=== PATIENT | female | born 1960 | race Caucasian/White ===

== ENCOUNTER 2016-12-27 14:53 | Emergency (ER) | payer OTHER ==
--- NOTE | 2016-12-27 15:21 | EDPHY ---
HPI/HX/ROS/PE/MDM Narrative: CHIEF COMPLAINT: Swelling and ecchymosis post surgery HISTORY OF PRESENT ILLNESS: This patient is a 56 year old female arriving with her daughter complaining of swelling, bruising, and tenderness to the left side of her ribcage following breast implant removal last week. She has a history of breast cancer, for which she underwent double mastectomy and subsequent 325cc bilateral implants. The patient states the implants began leaking, causing toxicity, so she had them removed by her plastic surgeon in [place], [place], 12/20/16, one week ago. She returned to [place] Friday, 12/23 and states the surgery went well, and that she is unaware of any complications. 12/25/16, she reports she had her sutures and drains removed in [place], and that she seemed to be healing well. Since then, she states she has noted swelling and bruising to her left side below the surgical site. She endorses feeling chilled and lightheaded occasionally, but states she expects these as side effects from her detox treatment. No fever, chest pain, shortness of breath, palpitations, vomiting, diarrhea, urinary complaints, headache. REVIEW OF SYSTEMS: Aside from elements discussed in the HPI, a comprehensive 10-point review of systems was reviewed and is negative. PAST MEDICAL HISTORY: Breast cancer, osteoporosis, autoimmune disorder SOCIAL HISTORY: Daughter at bedside. Lives in [place]. 1. See 2. Feel 3. Motion 4. Neurovascular Physical: bruising, asymmetrical tender to left Ecchymosis both anterior chest hui. Well-healed surgical incisions. Left side asymmetry of rib cage with left more prominent. No hematoma palpable. No LUQ tenderness. VITAL SIGNS: Hypotensive on arrival. Reviewed by me GENERAL: Well-developed, well-nourished, resting comfortably in no respiratory distress. HEENT: Benign. LUNGS: Clear to auscultation bilaterally, no wheezes, rhonchi or rales. CHEST: Ecchymosis is present on the lower anterior chest wall below the level of the surgical incisions. Incisions are well healing. There is a asymmetry of the chest wall. Mild swelling is present inferior to the surgical site on the left. No signs of erythema on the suture lines. Drainage sites are well healing. CARDIAC: Regular rate and rhythm, no rubs, murmurs or gallops. ABDOMEN: Soft, nontender, nondistended, bowel sounds normal. No upper abdominal discomfort. No left upper quadrant discomfort. BACK: No CVA tenderness. EXTREMITIES: No trauma. No edema. Range of motion is normal throughout. NEURO: Alert and oriented, grossly nonfocal. SKIN: Warm and dry, no rash. PSYCHIATRIC: Normal mentation, no agitation. Portions of this note were transcribed by a medical instrument cable fabricator. I personally performed a history, physical exam, medical decision making, and confirmed accuracy of information the transcribed note. ED Course: This patient is a 56 year old female presenting with ecchymosis and ribcage asymmetry following explantation surgery last 12/20/16. Plan for chest x-ray and ultrasound to evaluate for hematoma or other acute processes. Chest x-ray shows no identifiable source for chest pain, no evidence for metastatic breast cancer. Ultrasound shows findings consistent with a small incision site hematoma. Plan to discharge home in good condition with instructions to follow up as planned with her surgical team next Friday. MDM: Differential diagnoses for the patient's symptom complex was considered including but not limited to incisional hematoma, venous bleeding, arterial bleeding, chest wall asymmetry, pleural effusion, infected seroma, infected hematoma. - Data Points Imaging Results: Impression: Findings consistent with a small incision site hematoma. Dictated By: Joaquin Sheffield MD Imaging: Discussed imaging studies w/ gypsum roofer Radiologist Laboratory Results: Laboratory Results 12/27/16 15:43 General Time Seen by Provider: 12/27/16 15:07 Initial Vital Signs: Initial Vital Signs Temperature (C) 37 C 12/27/16 14:57 Heart Rate 63 12/27/16 14:57 Respiratory Rate 16 12/27/16 14:57 Blood Pressure 95/57 L 12/27/16 14:57 O2 Sat (%) 99 12/27/16 14:57 O2 Delivery Mode Room Air Allergies/Adverse Reactions: morphine Allergy (Unknown, Verified 12/21/11 19:54) Home Medications: Medication Instructions Recorded Diazepam [Valium 5 MG (RX)] 5 mg PO 12/21/11 Departure - Departure Disposition: Home, Routine, Self-Care Clinical Impression: Hematoma Condition: Good Instructions: Hematoma (ED) Additional Instructions: 1. Follow up as directed by your surgical team next Friday. 2. Apply light compression to the area. You may also use ice. 3. Return to the Emergency Department for any concerning worsening of condition. Referrals: Fiona Arzola MD [Primary Care Provider] - As per Instructions Report Scribed for: Bell Russ Report Scribed by: Samantha Schaefer Date of Report: 12/27/16 Time of Report: 16:10
[2016-12-27 15:55] LABS: % IMMATURE GRANULYOCYTES 0.4 % (0.0-1.1); ABSOLUTE IMMATURE GRANULOCYTES 0.02 10^3/uL (0.00-0.10); ADD DIFF? NO; ADD MORPH? NO; ADD SCAN? NO; ATYPICAL LYMPHOCYTE FLAG 10 (0-99); FRAGMENT RBC FLAG 0 (0-99); HEMATOCRIT 31.2 % (38.0-47.0); HEMOGLOBIN 10.6 g/dL (12.6-16.3); LEFT SHIFT FLG 0 (0-99); LIPEMIA HEMOLYSIS FLAG 90 (0-99); MEAN CELL HEMOGLOBIN 33.1 pg (27.9-34.1); MEAN CELL VOLUME 97.5 fL (81.5-99.8); MEAN PLATELET VOLUME 9.5 fL (8.7-11.7); PLATELET CLUMPS FLAG 0 (0-99); PLATELET COUNT 276 10^3/uL (150-400)
[2016-12-27 17:24] VITALS: BP 107/68; PULSE 60; RESP 18; TEMP 98.1; O2SAT 98
== END 2016-12-27 17:24 | disposition home or self-care (01) ==
DX: L76.32 Postprocedural hematoma of skin and subcutaneous tissue following other procedure (principal); Z85.3 Personal history of malignant neoplasm of breast